=== PATIENT | female | born 1970 | race Caucasian/White ===

== ENCOUNTER 2017-09-17 16:11 | Emergency (ER) | payer BC ==
--- NOTE | 2017-09-17 16:52 | ED Physician Chart ---
ED Chief Complaint/HPI - Patient Information Date Seen:: 09/17/17 Time Seen:: 16:30 Chief Complaint:: abdominal pain History of Present Illness:: Patient's had diffuse abdominal pain for 3 weeks. She vomited 2-1/2 3 weeks ago but not since. Patient has watery diarrhea every day 2-3 times. Allergies:: Allergies Allergy/AdvReac Type Severity Reaction Status Date / Time No Known Allergies Allergy Verified 09/17/17 16:31 Vitals:: Vital Signs - 8 hr 09/17/17 16:34 Temp 98.1 F HR 92 RR 22 BP 183/115 O2 Sat % 97 Historian:: Patient Review:: Nurse's Note Reviewed ED Review of Systems - Review of Systems General/Constitutional: No fever, No chills Skin: No skin lesions Head: No headache Eyes: No loss of vision ENT: No earache Neck: No neck pain Cardio Vascular: No chest pain Pulmonary: No SOB GI: No nausea, Diarrhea, Pain G/U: No dysuria, No frequency, No hematuria, Other (urine has a medicine--like smell to it) Musculoskeletal: No bone or joint pain Endocrine: No polyuria Psychiatric: No prior psych history Hematopoietic: No bruising Allergic/Immuno: No urticaria Neurological: No syncope, No focal symptoms ED Labs/Radiology/EKG Results - Lab Results Results: Laboratory Results - last 24 hr 09/17/17 09/17/17 16:45 16:45 WBC 9.5 RBC 4.20 Hgb 10.3 L Hct 31.2 L MCV 74.4 L MCH 24.4 L MCHC Differential 32.9 RDW 14.6 Plt Count 263 MPV 9.6 Add Manual Diff YES Sodium 138 Potassium 3.4 L Chloride 104 Carbon Dioxide 25.0 Anion Gap 12.4 BUN 13 Creatinine 0.6 Est GFR ( Amer) > 60.0 Est GFR (Non-Af Amer) > 60.0 BUN/Creatinine Ratio 21.7 Glucose 109 H Calcium 9.8 Magnesium 1.9 Lipase 22 Laboratory Results - last 24 hr 09/17/17 09/17/17 16:45 16:45 WBC 9.5 RBC 4.20 Hgb 10.3 L Hct 31.2 L MCV 74.4 L MCH 24.4 L MCHC Differential 32.9 RDW 14.6 Plt Count 263 MPV 9.6 Add Manual Diff YES Band Neutrophils % 1 Neutrophils (Manual) 60 Lymphocytes 34 Monocytes 5 Eosinophils 0 Basophils 0 Anisocytosis 1+ Microcytosis 2+ Ovalocytes 1+ Sodium 138 Potassium 3.4 L Chloride 104 Carbon Dioxide 25.0 Anion Gap 12.4 BUN 13 Creatinine 0.6 Est GFR ( Amer) > 60.0 Est GFR (Non-Af Amer) > 60.0 BUN/Creatinine Ratio 21.7 Glucose 109 H Calcium 9.8 Magnesium 1.9 Lipase 22 ED Septic Shock - . Is Septic Shock (SBP<90, OR Lactate>4 mmol\L) present?: No - <6hrs of presentation: Vital Signs: Vital Signs - 8 hr 09/17/17 16:34 Temp 98.1 F HR 92 RR 22 BP 183/115 O2 Sat % 97 ED Reassessment (Disposition) - Reassessment Reassessment:: I urged patient to follow-up with her primary care physician to get a referral to director special education. She needs an EGD and probably also a colonoscopy. Reassessment Condition:: Unchanged - Diagnosis Diagnosis:: Gastritis; anemia - Aftercare/Follow up Instructions Aftercare/Follow-Up Instructions:: Refer to Discharge Instructions Medication Prescribed:: Zantac 150 mg #30 to take one twice a day - Patient Disposition Discharge/Transfer:: Home Condition at Disposition:: Stable, Unchanged
[2017-09-17 16:53] LABS: RED CELL DISTRIBUTION WIDTH 14.6 % (11.5-20.0)
[2017-09-17 16:56] LABS: HEMATOCRIT 31.2 % (41.0-60); HEMOGLOBIN 10.3 gm/dL (12-16); MEAN CELL VOLUME 74.4 fl (81-100); MEAN CORPUSCULAR HEMOGLOBIN 24.4 pg (27.0-31.0); MEAN CORPUSCULAR HGB CONC 32.9 pg (28.0-36.0); MEAN PLATELET VOLUME 9.6 fl; PLATELET COUNT 263 Th/cmm (150-400); WHITE BLOOD COUNT 9.5 Th/cmm (4.8-10.8)
[2017-09-17 17:07] LABS: ANION GAP 12.4 (7.0-16.0); BUN - UREA NITROGEN 13 mg/dL (7-25); CALCIUM SERUM 9.8 mg/dL (8.6-10.3); CHLORIDE 104 mEq/L (98-107); CREATININE - SERUM 0.6 mg/dL (0.6-1.2); GFR AFRICAN-AMERICAN > 60.0 ml/min (>90); GFR NON AFRICAN-AMERICAN > 60.0 ml/min; GLUCOSE 109 mg/dL (70-105); LIPASE 22 U/L (11-82); MAGNESIUM 1.9 mg/dL (1.9-2.7); POTASSIUM SERUM 3.4 mEq/L (3.5-5.1); SODIUM SERUM 138 mEq/L (136-145)
[2017-09-17 17:28] LABS: ANISOCYTOSIS 1+; BAND NEUTROPHILE 1 % (0-10); BASOPHIL 0 % (0-3); EOSINOPHIL 0 % (0-5); LYMPHOCYTE 34 % (20-50); MONOCYTE 5 % (2-10); NEUTROPHILS 60 % (40-80)
[2017-09-17 17:29] LABS: OVALOCYTES 1+
[2017-09-17 18:00] LABS: URINE SOURCE MIDSTREAM
[2017-09-17 18:02] LABS: URINE BILIRUBIN SMALL (NEGATIVE); URINE BLOOD NEGATIVE (NEGATIVE); URINE GLUCOSE (UA) NEGATIVE (NEGATIVE); URINE KETONE TRACE mg/dL (NEGATIVE); URINE LEUKOCYTE ESTERASE NEGATIVE (NEGATIVE); URINE NITRATE NEGATIVE (NEGATIVE); URINE PROTEIN NEGATIVE (NEGATIVE)
[2017-09-17 18:17] LABS: URINE CLARITY HAZY (CLEAR); URINE COLOR YELLOW; URINE MICROSCOPIC INDICATED? YES
[2017-09-17 18:18] LABS: URINE BACTERIA MODERATE /hpf (NONE SEEN); URINE EPITHELIAL CELLS MANY /lpf (FEW); URINE RBC 0-2 /hpf (0-5); URINE WBC 0-2 /hpf (0-5)
== END 2017-09-17 19:15 | disposition home or self-care (01) ==
LOC: ER 16:11
DX: K29.70 Gastritis, unspecified, without bleeding (principal); D64.9 Anemia, unspecified
CPT/HCPCS: 36415-UA; 80048-TC; 81001-TC; 81025-TC; 83690-TC; 83735-TC; 85007-TC; 85025-TC; Z7502